=== PATIENT | male | born 1955 | race Caucasian/White ===

== ENCOUNTER 2019-12-10 13:42 | Emergency (ER) | payer OTHER ==
[2019-12-10] MEDS ORDERED: TETANUS/DIPHTHERIA TOXOID [ADULT] 0.5 ML VIAL IM ONE (14:02)
== END 2019-12-10 15:05 | disposition home or self-care (01) ==
LOC: EDH 13:42
DX: S90.31XA Contusion of right foot, initial encounter (principal); I10 Essential (primary) hypertension; W18.39XA Other fall on same level, initial encounter; Y93.89 Activity, other specified; Y92.89 Other specified places as the place of occurrence of the external cause; Y99.8 Other external cause status
CPT/HCPCS: 73630; 90471; 90714

== ENCOUNTER 2019-12-13 12:19 | Emergency (ER) | payer OTHER ==
[2019-12-13] MEDS ORDERED: CLINDAMYCIN 600 MG/D5% WATER 50 ML IV ONE (13:01)
[2019-12-13 13:20] LABS: BASOPHILS % (AUTO) 0.8 % (0.0-5.0); EOSINOPHILS % (AUTO) 2.4 % (0.0-8.0); HEMATOCRIT 45.6 % (42-54); LYMPHOCYTES % (AUTO) 31.6 % (21.0-51.0); MEAN CORPUSCULAR HEMOGLOBIN 30.4 pg (27.0-33.0); MEAN CORPUSCULAR HGB CONC 34.4 g/dL (32.0-36.0); MEAN CORPUSCULAR VOLUME 88.2 fL (79-99); MONOCYTES % (AUTO) 9.7 % (3.0-13.0); NEUTROPHILS % (AUTO) 54.9 % (40.0-77.0); PLATELET COUNT (AUTO) 210 K/uL (130-400); RED BLOOD CELL COUNT(AUTO) 5.17 MIL/uL (4.50-6.20); RED CELL DISTRIBUTION WIDTH 12.4 % (11.0-15.5)
[2019-12-13 13:32] LABS: CREATININE 0.9 mg/dL (0.5-1.5); POTASSIUM 3.8 mmol/L (3.5-5.1)
== END 2019-12-13 14:04 | disposition home or self-care (01) ==
LOC: EDH 12:19
DX: L03.115 Cellulitis of right lower limb (principal); I10 Essential (primary) hypertension; E78.00 Pure hypercholesterolemia, unspecified
CPT/HCPCS: 36415; 73630; 80048; 85025; 87040; 96365; 99284; J3490